=== PATIENT | female | born 2000 | race Caucasian/White ===

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

== ENCOUNTER → 2021-07-29 | Outpatient (CLI) | payer OTHER, SELFPAY | END | disposition home or self-care (01) | LOC: LABSPEC 15:44 | PROVIDERS: Visit Provider Otolaryngology | DX: Z20.822 Contact with and (suspected) exposure to COVID-19 (principal) | CPT/HCPCS: 87635; U0003; U0005 ==

== ENCOUNTER → 2021-08-03 | Outpatient (CLI) | payer OTHER, SELFPAY ==
--- NOTE | 2021-08-03 09:55 | TONS_PTH ---
PATIENT: PRIYANKA AGUSTIN LOC: [facility] U#:[id number] AGE/SX: 20/F ROOM: RE08/03/[address]: Dr. Flash Zuleta MD : 2000 BED: DIS: 08/03/2021 SPEC #: [id number] RECD: 08/03/21 14:57 STATUS: RAZIA VELASCO #: [id number] REBEL: 08/03/21 09:[address]: Flash Zuleta DEPT: SURGICAL PATHOLOGY RECD BY: Aysha Ashley ENTERED: 08/04/21 09:28 SP TYPE: TONSILS OTHR DR: No Primary Care Phys [facility] Tissues: Tonsil, NOS Procedures: Surgery Specimen Level III HEADER OPERATION: Tonsillectomy PRE-OP DIAGNOSIS: Hypertrophy of tonsils, chronic tonsillitis TISSUE SUBMITTED: Tonsils (right pinned) MICROSCOPIC DIAGNOSIS Right and left tonsils, bilateral tonsillectomies: Benign lymphoid hyperplasia, consistent with chronic tonsillitis. Organisms consistent with actinomyces. AM:juan 08/05/2021 MICROSCOPIC DESCRIPTION Slides are reviewed. GROSS DESCRIPTION Received is one container labeled with the patient's name and designated tonsils - pin on right are two tonsils that in aggregate weigh 9.3 gm. The right tonsil has a pin on it and measures 3.3 x 2 x 1.2 cm. The left tonsil measures 3 x 2 x 1.3 cm. Both tonsils are similar in appearance. The external surfaces are pink-adame, smooth, glistening and somewhat lobulated. Focally they are hemorrhagic, granular and bear cautery artifact. Serial cross sections through the tonsils reveal normal tonsillar architecture. Sections are submitted in two cassettes as follows: 1 - right tonsil, 2 - left tonsil. / MIGUEL:juan 08/04/2021 TC:5 CPT: 43448 x2
== END | disposition home or self-care (01) ==
LOC: LABSPEC 15:51
PROVIDERS: Visit Provider Otolaryngology
DX: J35.01 Chronic tonsillitis (principal)
CPT/HCPCS: 88304

== ENCOUNTER 2022-08-17 17:21 | Emergency (ER) | payer OTHER, SELFPAY ==
[2022-08-17 17:23] VITALS: BP 122/63; PULSE 103; RESP 18; TEMP 37.7; O2SAT 98; BMI 21.7
--- NOTE | 2022-08-17 18:29 | EX.ED.DYSGE1 ---
HPI History of Present Illness Chief Complaint: Fever Informant: patient Narrative Narrative: Patient presents with headaches muscle aches malaise and fever. She states she started with symptoms somewhere around noon yesterday. Slow onset. She has muscle aches a little bit on her back and shoulders. But she states this is common because she does a lot of lifting at work. She has a headache mostly in her temples. No visual complaints. No nasal congestion. No cough or sore throat. No earache. No urinary symptoms. No nausea vomiting diarrhea or abdominal pain but she has had decreased appetite not been really eating and drinking just because of that. She reports a history of migraines but only has them occasionally. They do present somewhat like this. She went to the [facility] and was sent over here for concern for meningitis. Nothing really makes his symptoms better. Bright lights do bother the headache slightly. But she has no visual loss or scotoma. She has no known exposures to anyone ill. [facility] History no medical history Allergy/AdvReac Type Severity Reaction Status Date / Time No Known Allergies Allergy Verified 08/17/22 17:22 Social History Smoking Status: Never smoker ROS ROS ED ROS Narrative A complete review of systems was performed and is negative except as documented in the history of present illness. Some specific details below. Constitutional: She has had some recent fevers. No rigors. Patient has had some mild generalized malaise. EYE: No discharge, visual complaints, or pain. Minimal photophobia. No visual loss or scotoma. ENT: No difficulty swallowing. No swelling. No sinus pressure or pain. No nasal discharge. No change in hearing. No ear pain. CV: No chest pain, pressure or aching. No palpitations or irregular beats. Patient has not been presyncopal or syncopal. Respiratory: No trouble breathing. No cough. No wheezing. No sputum production. No pain with breathing. GI: No abdominal pain. No nausea vomiting diarrhea. No blood in stool. Appetite has been down but she is able to eat and drink without difficulty. : No frequency dysuria or hematuria. Musculoskeletal: No recent trauma. No pains. No swelling. Skin: No rash. No diaphoresis. Neuro: No weakness or numbness. No difficulty with speaking. No difficulty understanding speech. No visual loss. Endocrine: No polyuria or polydipsia. EXAM Physical Exam Narrative Exam Narrative: CONSTITUTIONAL: Patient is nontoxic in appearance. The patient looks comfortable. She is pleasant. She laughs. She is very nontoxic. HEENT: No notable trauma. No notable temporal artery tenderness. Mucous membranes moist. No sinus tenderness. Tympanic membranes are normal. No temporal artery tenderness. No facial rashes or swelling. EYES: No conjunctival injection. No proptosis. No pain with range of motion. No significant photophobia on exam. NECK: No meningismus. No JVD. Range of motion is normal looking up down left and right without discomfort. Motion of the neck does not produce any discomfort at all. CARDIOVASCULAR: Regular rate. Regular rhythm. No notable murmur. No JVD. RESPIRATORY: No respiratory distress. Breathing is unlabored. No wheezes. No rhonchi. No rales. No pain with a deep breath. GASTROINTESTINAL: Not distended. Bowel sounds are normal. No tenderness. No guarding. No rebound. No palpable mass. No bruit. GENITOURINARY: No tenderness over the bladder. No CVA tenderness. MUSCULOSKELETAL: Atraumatic. No peripheral edema. No cord. No tenderness along the deep venous system. No asymmetry. NEUROLOGICAL: Patient is alert and oriented. No focal deficit noted. NIH stroke scale is 0. SKIN: No noted rashes. No diaphoresis. No vesicles noted. PSYCHIATRIC: Patient is calm. Mood is appropriate. Const Vital Signs: 08/17/22 17:23 08/17/22 17:45 Temperature 99.9 F H Temperature Source Temporal Pulse Rate 103 H Respiratory Rate 18 Respiratory Effort Normal Respiratory Pattern Normal Blood Pressure 122/63 H Blood Pressure Mean 82 Pulse Ox 98 Oxygen Delivery Method Room Air MDM MDM MDM Narrative Medical decision making narrative: I talked with patient about meningitis. We discussed the possibility of lumbar puncture. But I do not think she likely needs this. She does not want to have this done. I explained that it is not a bad procedure especially as she is a thin person. But she has headache myalgias and viral syndrome symptoms. They have been going on for about 30 hours. She is very nontoxic. When I tell her we can avoid this at this time she actually laughs and smiles and is very happy. This patient is extremely nontoxic and I do not think the lumbar puncture would be appropriate and she does not want it done. We will send off COVID and influenza but my suspicion is these probably will not be positive. I do not think she needs a chest x-ray as she has no cough trouble breathing or hypoxia. Her saturations are normal at 98% on room air. I do not think any imaging is needed at this time. She has a mild to moderate headache with a history of that. Patient was rechecked. She has not gotten all her fluids but she feels much better. She would like to go home. She states she got a little jittery. But it is feeling better now. I told her this is likely from the Compazine. If she has further problems at home she can take Benadryl. We again discussed lumbar puncture but she does not want this and I think that is reasonable. Discharge Plan Triage Chief Complaint: Fever ED Provider: Fabricio Infante Dx/Rx/DC Orders Clinical Impression: Acute viral syndrome, Headache, Myalgia, History of migraine Instructions: ED Viral Syndrome (Adult) Primary Care Provider: Care Physician,No Primary Referrals: Anne Quick, [Med Staff - Refrigerating Machine Operator] - 3-5 Days if not improving Care Physician,No Primary [Primary Care Provider] - Disposition Disposition: Home, Self Care
[2022-08-17] MEDS: 0.9% Normal Saline 1,000 ML 1000 ML IV (18:50)
[2022-08-17] MEDS: Acetaminophen 500 MG Tablet 1000 MG PO (18:50)
[2022-08-17] MEDS: DiphenhydrAMINE 50 MG/ML Syringe 25 MG IV (18:50)
[2022-08-17] MEDS: proCHLORPERazine 10 MG/2 ML Vial IV (18:51)
[2022-08-17 20:28] VITALS: BP 105/65; PULSE 89; RESP 16; O2SAT 99
== END 2022-08-17 20:30 | disposition home or self-care (01) ==
PROVIDERS: Emergency Provider Emergency Medicine; Visit Provider Emergency Medicine
DX: B34.9 Viral infection, unspecified (principal); M79.10 Myalgia, unspecified site; R51.9 Headache, unspecified; Z20.822 Contact with and (suspected) exposure to COVID-19; R50.9 Fever, unspecified
CPT/HCPCS: 87428; 96361; 96374; 96375; 99283; J7030; A4216

== ENCOUNTER → 2022-08-23 | Outpatient (CLI) | payer OTHER, SELFPAY | END | disposition home or self-care (01) | PROVIDERS: Visit Provider Registered Nurse | DX: Z00.00 Encounter for general adult medical examination without abnormal findings (principal) | CPT/HCPCS: 80323; G0480 ==

== ENCOUNTER 2022-11-17 09:16 | Emergency (ER) | payer OTHER, SELFPAY ==
[2022-11-17 09:17] VITALS: BP 112/71; PULSE 82; RESP 14; TEMP 36.3; O2SAT 99; BMI 21.9
--- NOTE | 2022-11-17 10:18 | EDS_ITS ---
HPI History of Present Illness Chief Complaint: Nausea/Vomiting Informant: patient and parent Narrative Narrative: 22-year-old female G1, P0 Ab0 presenting at approximately 6 weeks gestation with nausea and vomiting. Patient states that she plans on terminating this . She had an appointment yesterday for a ultrasound which confirmed an intrauterine . She states she has an appointment today at 1230 via telehealth. Patient states for the past 2 weeks she has had increasing nausea. For the past 24 hours she has had limited p.o. intake and what she has taken and has resulted in vomiting. She notes normal bowel movements. She notes abdo tyree cramping. No URI symptoms. No fevers. She notes some vaginal spotting. No pelvic pain. She is urinating. No syncope. No home treatment for the nausea vomiting. She does note a generalized headache over the past 24 hours PFSH PFSH Home Medications ondansetron 4 mg disintegrating tablet 4 mg PO Q6H PRN PRN Nausea #15 tabs 11/17/22 [Rx Last Taken Unknown] Allergy/AdvReac Type Severity Reaction Status Date / Time No Known Allergies Allergy Verified 11/17/22 09:18 Surgical History Hx of tonsillectomy Social History (Updated 11/17/22 @ 10:[address] Eugenio Higgins, ) current gender identity: female Smoking Status: Never smoker ROS ROS ED Constitutional Constitutional ED: Denies chills, fever(s) or weight loss Eyes Eyes: Denies change in vision or diplopia ENT ENT ED: Denies ear pain, rhinorrhea or sore throat Cardiovascular Cardiovascular: Denies chest pain, orthopnea, palpitations or racing heartbeat Respiratory/Chest Respiratory/Chest: Denies cough, dyspnea or orthopnea Gastrointestinal Gastrointestinal: Reports nausea, vomiting and other Details: Abdominal cramping ; Denies abdominal pain, constipation or diarrhea Genitourinary Genitourinary ED: Denies dysuria, hematuria or urinary frequency Musculoskeletal Musculoskeletal: Denies arthralgias or myalgias Integumentary Denies abscess or rash Neurologic Neurologic: Reports headache(s); Denies weakness Psychiatric Psychiatric: Denies anxiety, depression, suicidal ideation or suicidal thoughts Endocrine Endocrinology: Denies polydipsia, polyphagia or polyuria Allergic/Immunologic Allergic/Immunologic ED: Denies mouth swelling, tongue swelling or urticaria EXAM Physical Exam Const Vital Signs: 11/17/22 09:17 Temperature 97.3 F L Temperature Source Temporal Pulse Rate 82 Respiratory Rate 14 Blood Pressure 112/71 Blood Pressure Mean 84 Pulse Ox 99 Oxygen Delivery Method Room Air Positive well nourished and well developed General Appearance ED: well developed HEENT Reports normocephalic, head/scalp atraumatic and dry mucous membranes Mouth ED: Yes dry mucous membranes Mouth: dry mucous membranes Eyes PERRL and EOMs intact bilaterally Neck no lymphadenopathy, supple and no JVD Resp normal respiratory effort and clear to auscultation bilaterally Cardio regular rate, regular rhythm and no murmurs GI normal to inspection, nondistended, normoactive bowel sounds and non-tender Palpation: soft Back/Spine no CVA tenderness and normal ROM Extremity normal to inspection General Extremety ED: Negative for edema General Extremity: Negative for edema Neuro oriented x3 and CN's II-XII intact bilaterally Sensorium / Orientation: alert Motor Exam: strength 5/5 throughout Psych mental status grossly normal Mood & Affect: Negative for depressed or tearful Skin no rashes or lesions noted and no wounds MDM MDM MDM Narrative Medical decision making narrative: Patient received 2 L of IV fluids. Her headache and her nausea is improved after the addition of Zofran. I reviewed the patient's laboratory evaluation. Her electrolytes are normal. Urinalysis does demonstrate some ketones no obvious infection. Overall she feels significantly improved. Patient will receive a prescription for Zofran. She is to follow-up with her PUBLIC MESSAGE SERVICE SUPERVISOR as scheduled. Continued oral hydration at home. Lab Data Attestation: I reviewed the patient's lab results. Labs: Laboratory Results - last 24 hr 11/17/22 11/17/22 10:50 10:57 Sodium 135 L Potassium 3.9 Chloride 104 Carbon Dioxide 24.0 Anion Gap 7 BUN 7 Creatinine 0.64 Estim Creat Clear Calc 120.07 Est GFR (MDRD) Af Amer 150 Est GFR (MDRD) Non-Af 124 BUN/Creatinine Ratio 10.9 Glucose 91 Calcium 9.5 Urine Color Yellow Urine Clarity Clear Urine pH 7.0 Ur Specific [place] 1.010 Urine Protein Negative Urine Glucose (UA) Normal Urine Ketones 50 H Urine Occult Blood Negative Urine Nitrite Negative Urine Bilirubin Negative Urine Urobilinogen Normal Ur Leukocyte Esterase Negative Urine RBC 0 SEEN Urine WBC 0-5 SEEN Ur Squamous Epith Cells 0-5 SEEN Urine Bacteria RARE Urine Mucus 0 SEEN Discharge Plan Triage Chief Complaint: Nausea/Vomiting ED Provider: Eugenio Higgins Dx/Rx/DC Orders Clinical Impression: Hyperemesis gravidarum, Acute dehydration, First trimester Instructions: ED Hyperemesis Gravidarum Prescriptions: New ondansetron [ondansetron] 4 mg tablet,disintegrating 4 mg PO Q6H PRN PRN (Reason: Nausea) Qty: 15 0RF Primary Care Provider: Care Physician,No Primary Referrals: Care Physician,No Primary [Primary Care Provider] - Activity Restrictions/Additional Instructions: Please keep your gynecology appointment scheduled Disposition Disposition: Home, Self Care
[2022-11-17 10:55] LABS: Mucous, Urine 0 SEEN /hpf (<or=2+); Red Blood Cells-Urine 0 SEEN /hpf (0-5)
[2022-11-17 11:08] LABS: Color, Urine Yellow (Yellow); Glucose, Dipstick Normal (Normal); Ketone-Dipstick 50 mg/dl (Negative); Leukocyte Esterase-Dipstick Negative /ul (Negative); Nitrite-Dipstick Negative (Negative); Occult Blood-Urine Negative /ul (Negative); Protein-Dipstick Negative (Negative); Urine Bilirubin Dipstick Negative (Negative); Urine Clarity Clear (Clear); Urine Urobilinogen Normal (Normal)
[2022-11-17] MEDS: Ondansetron 4 MG/2 ML Vial IV (11:15)
[2022-11-17] MEDS: 0.9% Normal Saline 1,000 ML 1000 ML IV (11:15)
[2022-11-17 11:17] LABS: Anion Gap 7 (5-15); BUN 7 mg/dL (7-18); BUN/Creat Ratio 10.9 RATIO (10-20); Calcium,Total 9.5 mg/dL (8.5-10.1); Chloride 104 mmol/L (98-107); Creatinine, Serum 0.64 mg/dL (0.55-1.02); EST Glomerular Filtration Rate 124 mL/min (>60); Est Glom Filt Rate - Afr Amer 150 mL/min (>60); Estimated Creatinine Clearance 120.07 ml/min; Glucose 91 mg/dL (74-106); Potassium 3.9 mmol/L (3.5-5.1); Sodium Level 135 mmol/L (136-145)
[2022-11-17 11:18] LABS: Squamous Epithelial Cells - UA 0-5 SEEN /hpf (5-10); White Blood Cells 0-5 SEEN /hpf (0-5)
[2022-11-17 11:19] LABS: Bacteria RARE /hpf (None Seen)
[2022-11-17] MEDS: 0.9% Normal Saline 1,000 ML 999 ML IV (11:39)
--- NOTE | 2022-11-17 12:04 | CM.ED ---
Social Work Note Referral Source: case find Referral Reason: no PCP SW met with patient and introduced herself and role as [facility] Statistical Machine Mechanic. Patient lying on hospital bed and agreeable to speak with SW with family member present. SW inquired about patient's insurance and current PCP. Patient verified insurance and reports no current PCP. SW provided patient with a list of local PCPs in network with patient's insurance and accepting new patients. Patient's mother inquired about a list of dentists as well. SW provided a list of dentist in network with patient's insurance and accepting new patients. Patient receptive towards information provided. SW remains available if needs arise. Shilpa Huerta MSW, ROCIO
== END 2022-11-17 12:55 | disposition home or self-care (01) ==
PROVIDERS: Emergency Provider Emergency Medicine; Visit Provider Emergency Medicine
DX: O21.1 Hyperemesis gravidarum with metabolic disturbance (principal); O26.891 Other specified pregnancy related conditions, first trimester; R10.9 Unspecified abdominal pain; Z3A.01 Less than 8 weeks gestation of pregnancy
CPT/HCPCS: 80048; 81001; 96361; 96374; 99283; J7030; J2405

== ENCOUNTER → 2024-05-16 | Outpatient (CLI) | payer OTHER, SELFPAY ==
--- NOTE | 2024-05-16 12:44 | RAD_ITS ---
PROCEDURE: WRIST 2 VIEWS; HAND MIN 3 VIEWS REASON FOR EXAM: Injury, with pain. TECHNIQUE: Two-view right wrist and two-view right hand (combined dictation). COMPARISON: None. RAD/Wrist 2 Views IMPRESSION: No significant ulnar variance is noted. No significant arthritic process or joint narrowing is seen. Satisfactory carpal alignment is noted. Within the hand, satisfactory alignment is also seen. No acute fracture or dislocation is noted. If clinical concern persists, short-term follow-up imaging may be obtained to r ule out a currently occult fracture. Reading Location: [id number]
--- NOTE | 2024-05-16 12:44 | RAD_ITS ---
PROCEDURE: WRIST 2 VIEWS; HAND MIN 3 VIEWS REASON FOR EXAM: Injury, with pain. TECHNIQUE: Two-view right wrist and two-view right hand (combined dictation). COMPARISON: None. RAD/Hand Min 3 Views IMPRESSION: No significant ulnar variance is noted. No significant arthritic process or joint narrowing is seen. Satisfactory carpal alignment is noted. Within the hand, satisfactory alignment is also seen. No acute fracture or dislocation is noted. If clinical concern persists, short-term follow-up imaging may be obtained to r ule out a currently occult fracture. Reading Location: [id number]
== END | disposition home or self-care (01) ==
LOC: MTRAD 12:44
PROVIDERS: Referring Provider Physician Assistant Surgical; Visit Provider Physician Assistant Surgical
DX: S69.91XA Unspecified injury of right wrist, hand and finger(s), initial encounter (principal); X58.XXXA Exposure to other specified factors, initial encounter
CPT/HCPCS: 73100; 73130